=== PATIENT | male | born 1985 | race Caucasian/White ===

== ENCOUNTER 2022-03-09 11:17 | Inpatient (IN) | payer MEDICAID ==
[~2022-03-09] VITALS: Ht 172.7 cm; Wt 133.8 kg
[2022-03-09 11:30] VITALS: BP_SYST 163
[2022-03-09] MEDS ORDERED: CLINDAMYCIN 600 mg/50mL D5W 50 ML IV ONE (12:00)
[2022-03-09] MEDS ORDERED: NACL 0.9% 1,000 ML IV ONE (12:15)
--- NOTE | 2022-03-09 12:24 | NUR ---
ASSUMED CARE OF PT. PT REPORTS R LOWER LEG PAIN X2 DAYS. PT STATES HE BELIEVE HE WAS BIT BY SOMETHING. PT REPORTS CHILLS AND HOT FLASHES SINCE YESTERDAY. R LOWER LEG ERYTHEMA, EDEMATOUS AND HOT TO TOUCH. SKIN IS INTACT, NO DRAINAGE. +CMS. RESP EVEN AND UNLABORED. VSS, LOW GRADE TEMP AT 100.1 ORALLY. WILL CONT TO MONITOR
[2022-03-09 12:32] LABS: BASOPHILS # (AUTO) 0.1 K/uL (0.0-0.2); BASOPHILS % (AUTO) 0.4 % (0.0-2.0); EOSINOPHILS # (AUTO) 0.1 K/uL (0.0-0.4); EOSINOPHILS % (AUTO) 0.3 % (0.0-4.0); HEMATOCRIT 44.6 % (36-54); HEMOGLOBIN 15.2 g/dL (14.0-18.0); LYMPHOCYTES # (AUTO) 1.6 K/uL (1.0-5.5); LYMPHOCYTES % (AUTO) 8.6 % (20.5-51.5); MEAN CORPUSCULAR HEMOGLOBIN 29 pg (27-31); MEAN CORPUSCULAR HGB CONC 34 % (32-36); MEAN CORPUSCULAR VOLUME 86 fL (79.0-98.0); MONOCYTES % (AUTO) 5.5 % (1.7-9.3); NEUTROPHILS # (AUTO) 16.2 K/uL (1.8-7.7); NEUTROPHILS % (AUTO) 85.2 % (40.0-70.0); PLATELET COUNT (AUTO) 328 K/uL (130-430); RED BLOOD CELL COUNT(AUTO) 5.18 MIL/uL (4.2-6.2); RED CELL DISTRIBUTION WIDTH 14.4 % (9.0-15.0)
[2022-03-09 12:35] LABS: CALCIUM 8.1 mg/dL (8.4-11.0); CREATININE 0.95 mg/dL (0.55-1.30); POTASSIUM 3.7 mmol/L (3.5-5.1)
[2022-03-09 12:41] LABS: ALBUMIN 3.2 g/dL (3.4-4.8); TOTAL BILIRUBIN 0.3 mg/dL (0.0-1.0)
--- NOTE | 2022-03-09 13:17 | NUR ---
URINE SAMPLE OBTAINED AND SENT TO LAB
--- NOTE | 2022-03-09 13:22 | NUR ---
PT STATES HE IS NOT TAKING ANY HOME MEDS
--- NOTE | 2022-03-09 13:58 | NUR ---
PT RESTING WITH EYES CLOSED, EASILY AROUSED. NO DISTRESS. AWAITING RESULTS. WILL CONT TO MONITOR
--- NOTE | 2022-03-09 14:09 | NUR ---
Patient will be admitted to care of . Admitted to TELE unit. Diagnosis SEPSIS, CELLULITIS Inpatient (Yes or No)YES Observation (Yes or No)NO [] Orientation concerns or request close to nursing station (Yes or No)NO [] Covid Status PENDING [] On vent or bipap NO [] Isolation requirements NO [] Needs a sitter NO [] From Home (Yes or if No enter name of facility)YES [] Requires Dialysis (Yes or No)NO [] Med Rec Completed (Yes of No) YES[]
[2022-03-09] MEDS ORDERED: HYDROcodone/ACETAMIN 5-325 MG TAB (NORCO/ VICODIN) PO PRN (14:15)
[2022-03-09 14:24] LABS: BARBITURATE, URINE NEGATIVE (NEG <=200); BENZODIAZEPINE, URINE NEGATIVE (NEG <=150); CANNABINOID, URINE NEGATIVE (NEG <=50); COCAINE, URINE NEGATIVE (NEG <=150); METHAMPHETAMINES SCREEN,URINE POSITIVE (NEG <=500); OPIATE, URINE NEGATIVE (NEG <=100); PHENCYCLIDINE SCREEN,URINE NEGATIVE (NEG <=25); UR TRICYCLIC ANTIDEPRESSANTS NEGATIVE (NEG <=300); URINE AMPHETAMINE POSITIVE (NEG <=500); URINE METHADONE NEGATIVE (NEG <=200); URINE OXYCODONE SCREEN NEGATIVE (NEG <=100); URINE PROPOXYPHENE SCREEN NEGATIVE (NEG <=300)
--- NOTE | 2022-03-09 15:52 | NUR ---
PT RESTING COMFORTABLY, ASLEEP, EASILY AROUSED. DENIES PAIN AT THIS TIME. VSS. RESP EVEN AND UNLABORED. AWAITING TELE BED. WILL CONT TO MONITOR
--- NOTE | 2022-03-09 16:26 | NUR ---
CALL TO CHARGE NURSE FOR AVAILABLE TELE BED, TO CALL BACK
[2022-03-09] MEDS ORDERED: NALOXONE HCL 0.4 MG/ML AMP (NARCAN) IVP PRN (18:00)
[2022-03-09] MEDS ORDERED: ONDANSETRON HCL 4 MG/2 ML VIAL IVP PRN (18:00)
[2022-03-09] MEDS ORDERED: HYDROcodone/ACETAMIN 10-325 MG TAB PO PRN (18:00)
[2022-03-09] MEDS ORDERED: TEMAZEPAM 15 MG CAPSULE PO PRN (18:00)
[2022-03-09] MEDS ORDERED: ACETAMINOPHEN 325 MG TABLET PO PRN (18:00)
[2022-03-09] MEDS ORDERED: DIPHENHYDRAMINE INJ 50 MG/ML VIAL IVP PRN (18:00)
[2022-03-09] MEDS ORDERED: LORazepam 2 MG/ML VIAL IVP PRN (18:00)
[2022-03-09] MEDS: PIPERACILLIN/TAZO 3.375/DEX-IS 50 ML IV SCH ×2 (18:13→23:34)
--- NOTE | 2022-03-09 18:13 | NUR ---
no change in status. admitting md came by for eval. shadyn started. vss. denies pain at this time. awaiting tele bed. will cont to monitor
[2022-03-09] MEDS ORDERED: cloNIDine HCL 0.1 MG TABLET PO PRN (18:45)
--- NOTE | 2022-03-09 18:47 | NUR ---
BEDSIDE REPORT GIVEN TO ALVAREZ RN, QUESTIONS ANSWERED. PT IS STABLE FOR TRANSFER TO FLOOR
--- NOTE | 2022-03-09 19:10 | NUR ---
PATIENT CAME AT THIS TIME. EATING DINNER AT THIS TIME. ENDORSED TO INCOMING NURSE CAREY WILL
[2022-03-09 20:00] VITALS: BP_SYST 159
[2022-03-09] MEDS ORDERED: ENOXAPARIN SODIUM 40 MG/0.4 ML SYRINGE SUBCUT SCH (21:00)
[2022-03-09] MEDS: LACTOBACILLUS RHAMNOSUS GG 1 CAP CAPSULE PO SCH (21:34)
--- NOTE | 2022-03-09 21:59 | NUR ---
MOTHER OF PATIENT AND ANOTHER FAMILY MEMBER PRESENT TO BRING PATIENT CLOTHING HE HAD AN EPISODE OF INCONTINENCE. CAREY HANSEN RN
--- NOTE | 2022-03-09 22:32 | NUR ---
PATIENT GIVEN BED BATH AND LINEN CHANGE OFFER. SAYS HE PREFERS SLEEPING AT THIS TIME AND IT WAS A SMALL LEAK ON BOXERS. CAREY HANSEN RN
[2022-03-10] VITALS: BP_SYST 159
--- NOTE | 2022-03-10 01:10 | NUR ---
LATE ENTRY: ADMISSION NOTE FOR A 36 YEAR OLD MALE UNDER THE CARE OF DOCTOR WARREN FOR RIGHT LOWER EXTREMITY CELLULITIS. CAREY HANSEN RN
[2022-03-10] MEDS: PIPERACILLIN/TAZO 3.375/DEX-IS 50 ML IV SCH ×2 (05:37→13:41)
[2022-03-10 07:27] LABS: BASOPHILS # (AUTO) 0.1 K/uL (0.0-0.2); BASOPHILS % (AUTO) 0.6 % (0.0-2.0); EOSINOPHILS # (AUTO) 0.3 K/uL (0.0-0.4); EOSINOPHILS % (AUTO) 1.7 % (0.0-4.0); HEMATOCRIT 42.5 % (36-54); HEMOGLOBIN 14.3 g/dL (14.0-18.0); LYMPHOCYTES # (AUTO) 2.1 K/uL (1.0-5.5); LYMPHOCYTES % (AUTO) 13.5 % (20.5-51.5); MEAN CORPUSCULAR HEMOGLOBIN 29 pg (27-31); MEAN CORPUSCULAR HGB CONC 34 % (32-36); MEAN CORPUSCULAR VOLUME 87 fL (79.0-98.0); MONOCYTES # (AUTO) 1.5 K/uL (0.0-1.0); MONOCYTES % (AUTO) 9.5 % (1.7-9.3); NEUTROPHILS # (AUTO) 11.9 K/uL (1.8-7.7); NEUTROPHILS % (AUTO) 74.7 % (40.0-70.0); PLATELET COUNT (AUTO) 301 K/uL (130-430); RED CELL DISTRIBUTION WIDTH 14.2 % (9.0-15.0); WHITE BLOOD COUNT (AUTO) 15.9 K/uL (4.8-10.8)
[2022-03-10 07:33] LABS: ALBUMIN 2.5 g/dL (3.4-4.8); CALCIUM 7.4 mg/dL (8.4-11.0); CREATININE 0.9 mg/dL (0.55-1.30); POTASSIUM 3.5 mmol/L (3.5-5.1); TOTAL BILIRUBIN 0.1 mg/dL (0.0-1.0)
--- NOTE | 2022-03-10 07:45 | NUR ---
NOTES PATIENT AAOX 4. VITAL SIGNS STABLE. AFEBRILE. HAS IV ACCESS ON THE RT HAND #[id number]. SALINE LOCK. LUNGS BILATERALLY CLEAR. ABDOMEN SOFT AND NON DISTENDED. NO PAIN NOR DISCOMFORT NOTED. USES URINAL FOR URINATION. CALL LIGHTS WITHIN REACH. BED LOW POSITION, ALARMED AND LOCKED. WILL CONTINUE
--- NOTE | 2022-03-10 07:45 | NUR ---
RT LEG SWOLLEN AND RED AND HOT TO TOUCH WITH PAIN. PALPABLE PULSES NOTED.
[2022-03-10] MEDS: LACTOBACILLUS RHAMNOSUS GG 1 CAP CAPSULE PO SCH (08:46)
--- NOTE | 2022-03-10 08:46 | NUR ---
DUE MEDS GIVEN AT THIS TIME.
[2022-03-10 09:06] VITALS: BP_SYST 142
[2022-03-10 13:41] VITALS: BP_SYST 149
--- NOTE | 2022-03-10 13:57 | NUR ---
DR WARREN CAME AND SEE THE PATIENT WITH ORDERS ULTRASOUND OF LOWER EXTREMETIES
--- NOTE | 2022-03-10 15:02 | NUR ---
AWAITING TO DO VENOUS DOPPLER STUDY ON THE LOWER EXTREMETIES FOR DVT
--- NOTE | 2022-03-10 16:01 | NUR ---
PATIENT MOM CAME AND INFORMED HER REGARDING THE PLAN OF CARE FOR HIM. AND ASKED FOR THE DIRECT LINE IN THE UNIT WEST SIDE.
[2022-03-10 16:06] VITALS: BP_SYST 140
[2022-03-10] MEDS ORDERED: AMPICILLIN SODIUM/SULBACTAM NA 3 GM in NS 100 ML IV SCH (18:00)
--- NOTE | 2022-03-10 18:16 | NUR ---
UNASYN IV GIVEN AT THIS TIME. PATIENT SAID LATER I WILL EAT MY DINNER. ENDORSED TO INCOMING NURSE
--- NOTE | 2022-03-10 18:39 | NUR ---
VENOUS DOPPLER NEGATIVE. ON THE RIGHT LOWER EXTREMITY
[2022-03-10 20:33] VITALS: BP_SYST 141
--- NOTE | 2022-03-10 20:34 | NUR ---
PATIENT SAYS "MY LEG IS FEELING MUCH BETTER AND ITS EASY TO MOVE NOW. " CAREY HANSEN RN
[2022-03-10] MEDS ORDERED: DOCUSATE SODIUM 250 MG CAPSULE PO SCH (21:00)
--- NOTE | 2022-03-10 21:42 | NUR ---
PATIENT REFUSING BED LINEN AND GOWN CHANGE AFTER INCONTINENT EPISODE. DECISION BY PATIENT TO LEAVE AGAINST MEDICAL ADVICE. PATIENT REMOVED OWN IV PER AND CONSTRUCTION DRILLER PER RESOURCE NURSE, EUGENE. PATIENT REFUSED ASSISTANCE OF SOLANGE SPARKS. PICKER TENDER HELPER WITNESS AGAINST MEDICAL ADVICE FORM TO CHART AND SIGNED BY PATIENT AT THIS TIME. MD WARREN AFTER HOURS SERVICE NOTIFIED. BURGLAR ALARM MECHANIC NOTIFIED BY NURSE SECRETARY SPECIALIST KATHRYN.
--- NOTE | 2022-03-10 21:47 | NUR ---
DR WARREN WAS NOTIFIED THAT PT LEFT AMA
--- NOTE | 2022-03-11 09:21 | NUR ---
EDITORIAL CLERK CHECK OUT CLERK Johana attempted to respond to Social Work consult request, but upon review of notes patient has LAMA
== END 2022-03-10 21:35 | disposition left against medical advice (07) | DRG 720 ==
LOC: SED 11:17 → STU 14:04
PROVIDERS: ADMIT Internal Medicine; ATTEND Internal Medicine
DX: A41.9 Sepsis, unspecified organism (principal); E44.1 Mild protein-calorie malnutrition; L03.115 Cellulitis of right lower limb; F15.10 Other stimulant abuse, uncomplicated; F17.210 Nicotine dependence, cigarettes, uncomplicated; E66.01 Morbid (severe) obesity due to excess calories; Z20.822 Contact with and (suspected) exposure to COVID-19; Z68.41 Body mass index [BMI] 40.0-44.9, adult; Z79.899 Other long term (current) drug therapy; E83.51 Hypocalcemia
CPT/HCPCS: 36415; 80053; 80307; 83605; 83735; 85025; 87040; 93970; 96361; 96374; 99285; G0378; J0295; J1650; J2543; J3490; J7030